=== PATIENT | female | born 1980 | race Caucasian/White ===

== ENCOUNTER 2024-04-06 10:44 | Inpatient (IN) | payer MEDICAID, OTHER ==
[2024-04-06 11:37] LABS: APPEARANCE,URINE SLIGHTLY CLOUDY (CLEAR); BILIRUBIN,URINE NEGATIVE (NEGATIVE); COLOR,URINE YELLOW (YELLOW); GLUCOSE,URINE NEGATIVE (NEGATIVE); KETONES,URINE NEGATIVE (NEGATIVE); LEUKOCYTE ESTERASE,URINE NEGATIVE (NEGATIVE); NITRITE,URINE NEGATIVE (NEGATIVE); OCCULT BLOOD,URINE NEGATIVE (NEGATIVE); PROTEIN,URINE NEGATIVE (NEGATIVE); UROBILINOGEN,URINE 0.2 EU/dL (0.2-1.0)
[2024-04-06 11:43] LABS: AMORPHOUS SEDIMENT,URINE RARE; BACTERIA,URINE NOT SEEN; EPITHELIAL CELLS,URINE NOT SEEN; MUCUS,URINE NOT SEEN; RBC,URINE NOT SEEN (0-5); WBC,URINE NOT SEEN (0-5)
[2024-04-06 11:50] LABS: BASOPHILS ABSOLUTE AUTO 0.04 K/uL (0.00-0.10); BASOPHILS PERCENT AUTO 0.4 % (0.1-1.3); EOSINOPHILS ABSOLUTE AUTO 0.89 K/uL (0.00-0.40); EOSINOPHILS PERCENT AUTO 9.9 % (0.0-5.4); HEMATOCRIT 38.8 % (34.3-46.0); HEMOGLOBIN 13.3 g/dL (11.2-15.5); IMMATURE GRAN ABSOLUTE AUTO 0.03 K/uL (0.00-0.23); IMMATURE GRAN PERCENT AUTO 0.3 % (0.0-0.7); LYMPHOCYTES ABSOLUTE AUTO 3.28 K/uL (0.8-3.3); LYMPHOCYTES PERCENT AUTO 36.3 % (11.4-47.7); MEAN CORPUSCULAR HEMOGLOBIN 30.2 pg (31.6-35.5); MEAN CORPUSCULAR HGB CONC 34.3 g/dL (31.6-35.5); MONOCYTES ABSOLUTE AUTO 0.66 K/uL (0.20-0.90); MONOCYTES PERCENT AUTO 7.3 % (3.3-12.6); NEUTROPHILS ABSOLUTE AUTO 4.13 K/uL (1.0-7.6); NEUTROPHILS PERCENT AUTO 45.8 % (40.0-78.1); PLATELET COUNT,PLT 243 K/uL (130-375); RED BLOOD CELL COUNT 4.41 M/uL (3.77-5.24)
[2024-04-06 12:07] LABS: PROTHROMBIN TIME 9.9 sec (9.2-10.6)
[2024-04-06 12:15] LABS: A/G RATIO 0.9 (1.2-2.2); ALANINE AMINOTRANSFERASE,ALT 25 U/L (12-78); ALBUMIN 3.5 g/dL (3.4-5.0); ALKALINE PHOSPHATASE 87 U/L (46-116); AMYLASE 63 U/L (25-115); ASPARTATE AMNIOTRANSFERASE,AST 21 U/L (15-37); BILIRUBIN TOTAL 0.4 mg/dL (0.2-1.0); BLOOD UREA NITROGEN,BUN 14 mg/dL (7-18); CALCIUM 8.9 mg/dL (8.5-10.1); CARBON DIOXIDE,CO2 27 mmol/L (21-32); CHLORIDE,CL 103 mmol/L (100-108); CREATININE 0.7 mg/dL (0.6-1.0); EST CRCL DRUG DOSING (CG) 73.67 mL/min; ESTIMATED GFR 109 mL/min (>60); GLUCOSE RANDOM 89 mg/dL (74-106); MAGNESIUM 1.6 mg/dL (1.8-2.4); POTASSIUM,K 4.1 mmol/L (3.6-5.2); PROTEIN TOTAL,TP 7.5 g/dL (6.4-8.2); SODIUM,NA 136 mmol/L (140-148)
[2024-04-06 12:16] LABS: ANION GAP 10.1 mmol/L (5.0-14.0)
[2024-04-06] MEDS: Pantoprazole 40 MG Vial IVPUSH ONE (12:16)
[2024-04-06] MEDS: Sodium Chloride 0.9% 500 ML IV SCH (12:17)
[2024-04-06] MEDS: Magnesium Sulfate/Water 2 GM in Premix Bag 1 BAG IV ONE (13:17)
[2024-04-06] MEDS: Sodium Chloride 0.9% 1,000 ML IV SCH (14:13)
[2024-04-06 15:01] LABS: HEMATOCRIT 36.3 % (34.3-46.0); HEMOGLOBIN 12.6 g/dL (11.2-15.5)
[2024-04-06] MEDS ORDERED: Ondansetron 4 MG/2 ML SDV IV PRN (16:33)
[2024-04-06] MEDS ORDERED: Albuterol 6.7 GM Inhaler INH PRN (16:33)
[2024-04-06] MEDS ORDERED: Albuterol 0.083% 2.5 MG/3 ML Neb Soln NEB PRN (16:33)
[2024-04-06] MEDS ORDERED: Sodium Chloride 0.9% 10 ML Syringe FLUSH PRN (16:33)
[2024-04-06] MEDS: Bisacodyl 5 MG Tab PO ONE ×2 (17:40→20:15)
[2024-04-06] MEDS: Nicotine 14 MG/24 Hr Patch TRDERM SCH (17:40)
[2024-04-06] MEDS: Polyethylene Glycol 3350 Powder 238 GM Bot PO ONE (17:41)
[2024-04-06] MEDS: Iopamidol 612 MG/ML 100 ML Bottle IV ONE ×2 (19:39)
[2024-04-06] MEDS: Sodium Chloride 0.9% 100 ML IV ONE ×2 (19:39)
[2024-04-06] MEDS: Sodium Chloride 0.9% 10 ML Syringe FLUSH ONE (19:39)
[2024-04-06] MEDS: Magnesium Sulfate/Water 2 GM in Premix Bag 1 BAG IV SCH (20:15)
[2024-04-06] MEDS: Acetaminophen 325 MG Tab PO PRN (21:00)
[2024-04-07 05:05] LABS: HEMATOCRIT 37.9 % (34.3-46.0); HEMOGLOBIN 12.9 g/dL (11.2-15.5); MEAN CORPUSCULAR HEMOGLOBIN 30.1 pg (31.6-35.5); MEAN CORPUSCULAR VOLUME 88.3 fL (81.4-99.0); RED BLOOD CELL COUNT 4.29 M/uL (3.77-5.24); WHITE BLOOD CELL COUNT,WBC 7.3 K/uL (3.2-11.0)
[2024-04-07 05:14] LABS: CALCIUM 8.3 mg/dL (8.5-10.1); CREATININE 0.6 mg/dL (0.6-1.0); EST CRCL DRUG DOSING (CG) 85.94 mL/min
[2024-04-07] MEDS: Sodium Chloride 0.9% 1,000 ML IV SCH (06:00)
[2024-04-07] MEDS ORDERED: Propofol 200 MG/20 ML SDV ONE (09:58)
[2024-04-07] MEDS ORDERED: fentaNYL 100 MCG/2 ML SDV ONE (09:59)
[2024-04-07] MEDS ORDERED: Midazolam 1 MG/ML 2 ML SDV ONE (09:59)
== END 2024-04-07 12:50 | disposition home or self-care (01) | DRG 379 ==
LOC: JP.ED 10:44 → JP.MS 15:45
PROVIDERS: ADMIT Hospitalist; ATTEND Internal Medicine
PROC: 0DBM8ZZ Excision of Descending Colon, Via Natural or Artificial Opening Endoscopic (ICD-10-PCS; principal; 2024-04-07 11:00)
DX: K92.1 Melena (principal); K63.5 Polyp of colon; H54.7 Unspecified visual loss; J45.909 Unspecified asthma, uncomplicated; F41.9 Anxiety disorder, unspecified; R55 Syncope and collapse; E83.42 Hypomagnesemia; K21.9 Gastro-esophageal reflux disease without esophagitis; E86.0 Dehydration; F10.90 Alcohol use, unspecified, uncomplicated; Z98.890 Other specified postprocedural states; Z88.5 Allergy status to narcotic agent; Z88.8 Allergy status to other drugs, medicaments and biological substances; Z79.51 Long term (current) use of inhaled steroids; Z98.51 Tubal ligation status; Z98.1 Arthrodesis status; Z72.0 Tobacco use
CPT/HCPCS: 00811-QZ; 36415; 71260; 74177; 80048; 80053; 81001; 82140; 82150; 82272; 83690; 83735; 85014; 85018; 85025; 85027; 85610; 86850; 86900; 86901; 96361; 96365; 96366; 96375; 99222; 99238; 99285-25; A9270-GY; C9113; J2250; J2704; J3010; J3475; J7030